=== PATIENT | male | born 1960 | race Caucasian/White ===

== ENCOUNTER 2018-11-05 06:33 | Day surgery (SDC) | payer OTHER ==
--- NOTE | 2018-10-25 18:12 | HP ---
HISTORY AND PHYSICAL: DATE OF SURGERY: 11/05/18 DATE OF OFFICE VISIT: 10/25/18 SURGEON: Macrina Pappas MD * (DICTATED BY JACOB URIAS) PROCEDURE: Right knee arthroscopy with partial meniscectomy, possible chondroplasty, possible synovectomy, and possible plica excision. CHIEF COMPLAINT: Right knee pain. HISTORY OF PRESENT ILLNESS: Mr. Houston is a 58-year-old gentleman with continued complaints of right knee pain. He failed conservative treatment and elected to proceed with a right knee arthroscopy. PAST MEDICAL HISTORY: Hypertension, high cholesterol, prior [place], depression, anxiety, sleep apnea, diabetes-diet controlled, asthma, BPH, hypothyroidism, and GERD. PAST SURGICAL HISTORY: Esophageal dilation, sinus surgery, and tonsillectomy. CURRENT MEDICATIONS: 1. Omeprazole 20 mg twice a day. 2. Nasacort Allergy nasal spray. 3. Citalopram 20 mg a day. 4. Nitroglycerin sublingual as needed. 5. Fexofenadine 180 mg daily. 6. Levothyroxine 125 mcg daily. 7. Symbicort inhaler twice daily as needed. 8. Lisinopril 10 mg a day. 9. Aspirin 325 mg once a day. 10. Albuterol inhaler as needed. 11. Multivitamin. 12. Amlodipine 5 mg a day. 13. Vitamin B12. 14. Zetia 10 mg daily. 15. Ibuprofen as needed. ALLERGIES: NIASPAN and LIPITOR. FAMILY HISTORY: Coronary artery disease, diabetes, stroke, and RA. SOCIAL HISTORY: He is a 58-year-old gentleman, lives alone. He does not smoke or use drugs or alcohol. REVIEW OF SYSTEMS: A complete 14-point review of systems was reviewed with the patient. It was positive for GERD, asthma, diabetes, hypothyroidism. He denies history of DVT, PE, hepatitis, HIV, or anesthesia problems. PHYSICAL EXAMINATION GENERAL: He is well developed, well nourished, in no acute distress. VITAL SIGNS: He stands 70 inches tall, weighs 213 pounds. His blood pressure is 111/76, his heart rate is 72. HEENT: Normocephalic, atraumatic. NECK: Supple. No palpable lymph nodes. PULMONARY: Lungs are clear to auscultation bilaterally. CARDIO: Regular rate and rhythm. Strong S1, S2. ABDOMEN: Soft, nontender, nondistended. NEUROLOGIC: He is alert and oriented x3. MUSCULOSKELETAL: Right lower extremity: The skin is intact. There are no open wounds or abrasions. There is a moderate effusion of the right knee joint , some tenderness along the medial joint line. Positive Apley's, positive Berenice's. Range of motion is 5 to 130 degrees of flexion. He is able to dorsiflex and plantarflex and has 2+ dorsalis pedis pulses. ASSESSMENT AND PLAN: Mr. Houston is a 58-year-old gentleman with complaints of right knee pain. An MRI confirms medial and lateral meniscus tear. He has elected to proceed with a right knee arthroscopy with partial meniscectomy, possible chondroplasty, possible synovectomy, possible plica excision. The surgery is scheduled for 11/05/[address] Pappas has discussed the risks and benefits of the surgery at today's visit and all of his questions were answered. He will follow up with Dr. Pappas 2 weeks after the surgery. He was instructed to stop his ibuprofen 1 week prior to the surgery, but he will continue his daily aspirin. JACOB URIAS [id number]/[facility] #: [id number] TRACEY
[~2018-11-05 06:33] MED LIST: Buffered Lidocaine 1% SYRIN* 1 ML/SYRINGE INTRADERM ONE; Famotidine IV* 10 MG/ML 2 ML (20 mg) IV ONE; Lactated Ringers 1000 ML Bag* 1,000 ML IV SCH
[2018-11-05] MEDS ORDERED: ceFAZolin 2 GM in NS PREMIX(*) 2 GM/100 ML BAG IVPB ONE (06:57)
[2018-11-05] MEDS ORDERED: Famotidine IV* 10 MG/ML 2 ML (20 mg) ONE (06:57)
[2018-11-05] MEDS ORDERED: fentaNYL* 50 MCG/ML 2 ML VIAL (100 MCG VIAL) ONE ×2 (07:33→08:18)
[2018-11-05] MEDS ORDERED: Dexamethasone IV* 4 MG/ML 1 ML (4 MG) ONE (07:33)
[2018-11-05] MEDS ORDERED: Ondansetron INJ* 2 MG/ML VIAL ONE (07:33)
[2018-11-05] MEDS ORDERED: Ketorolac INJ* 30 MG/ML 1 ML VIAL ONE (07:33)
[2018-11-05] MEDS ORDERED: Phenylephrine 10 MG/ML VIAL* 1 ML VIAL ONE (07:33)
[2018-11-05] MEDS ORDERED: Lidocaine 2% PF * 5 ML VIAL ONE (07:33)
[2018-11-05] MEDS ORDERED: Propofol* 10 MG/ML 20 ML BTL ONE (07:33)
[2018-11-05] MEDS ORDERED: Midazolam* 1 MG/ML 5 ML VIAL (5 MG) ONE (07:34)
[2018-11-05] MEDS ORDERED: KETAMINE HCL* 50 MG/ML 10 ML VIAL ONE (07:34)
[2018-11-05] MEDS ORDERED: methylPREDNISolone ACETATE 80* 80 MG/ML 1 ML VIAL ONE (07:46)
[2018-11-05] MEDS ORDERED: EPINEPHRINE 1 MG/ML 1 ML VIAL ONE (07:46)
[2018-11-05] MEDS ORDERED: ROPIVACAINE 5 MG/ML 30 ML BTL (0.5%) ONE (07:46)
[2018-11-05] MEDS ORDERED: oxyCODONE/Acetamin 5/325 MG* TAB PO PRN (07:49)
[2018-11-05] MEDS ORDERED: Ondansetron INJ* 2 MG/ML VIAL IV PRN (07:49)
[2018-11-05] MEDS ORDERED: Naloxone* 0.4 MG/ML 1 ML VIAL IV PRN (07:49)
[2018-11-05] MEDS ORDERED: fentaNYL* 50 MCG/ML 2 ML VIAL (100 MCG VIAL) IV PRN (07:49)
[2018-11-05] MEDS ORDERED: EPHEDrine (Pressors)* 50 MG/ML VIAL ONE (08:26)
[2018-11-05 10:49] VITALS: BP 112/68
--- NOTE | 2018-11-05 17:29 | OP ---
DATE OF OPERATION: 11/05/18 - [facility] DATE OF : 58 ATTENDING SURGEON: Macrina Pappas MD FINANCE SPECIALIST: JACOB Palafox. Ms. Easton did help throughout the procedure with preparation of the leg wound retractions, manipulation of the knee, and wound closure. ANESTHESIOLOGIST: Dr. Darden. ANESTHESIA: General. PRE-OP DIAGNOSIS: Right knee medial and lateral meniscal tears. POST-OP DIAGNOSIS: Right knee medial meniscal tears, mild arthritic changes. OPERATIVE PROCEDURE: Right knee arthroscopy with partial lateral meniscectomy. SPECIMEN: None. COMPLICATIONS: None. ESTIMATED BLOOD LOSS: Less than 25 cc. BRIEF HISTORY/INDICATIONS: Mr. Houston is a 58-year-old gentleman who developed acute onset of mechanical symptoms, medial and lateral knee pain that did not respond to conservative treatment. MRI confirmed medial and lateral meniscal tears. Due to continued pain, the patient elected to undergo right knee arthroscopy with partial meniscectomy. Informed consent was obtained from the patient. He understood the risks of surgery included, but were not limited to bleeding, infection, damage to nearby structures, continued pain, need for further surgery, re-tear of the meniscus, progression of arthritis, stroke, heart attack, blood clot and . He wished to proceed. INTRAOPERATIVE FINDINGS: Intraoperatively, the patient was noted to have a linear type tear involving the posterior 30% of the medial meniscus, he had a radial type tear on the anterior portion of the lateral meniscus. Both tears involved with the white-red zone. He was noted to have grade 2 and 3 Outerbridge cartilage changes in the patellofemoral and medial compartment which did not involve a large surface area of the weightbearing portion. DESCRIPTION OF PROCEDURE: Mr. Houston was identified in the preanesthesia unit. His right lower extremity was marked as the correct operative side. Informed consent was signed and placed in the chart. The patient was taken to the operating room and placed under anesthesia without difficulty. Right lower extremity was prepped and draped in the usual sterile fashion. Preop time-out was made to correctly identify the patient's side and site. Appropriate perioperative antibiotics were given within 1 hour of incision. A 0.5 cm anterolateral portal incision was made with a 10 blade and carried down to the capsule. Trocar was introduced. As soon as the light sources and water sources were turned on, there was immediate visualization of the suprapatellar pouch. A tour of the knee joint was performed. Suprapatellar pouch had no obvious abnormalities. Patellofemoral compartment had some minimal grade 2 and 3 Outerbridge cartilage changes. Medial compartment showed no significant plica or loose body. Medial compartment of the knee showed grade 2 and 3 Outerbridge cartilage changes along the medial femoral condyle. Medial meniscus tear was visible. This is a linear tear involving the posterior portion of the medial meniscus. There was some mild anterior displacement. ACL and PCL appeared to be intact. The knee was placed in a [id number] position. There was an anterior radial tear on the lateral meniscus. Minimal degenerative changes. Lateral gutters showed no loose body or plica. Under direct visualization, a medial portal incision was made with a 10-blade. Probe was introduced and second tour of the knee joint was performed. No additional findings were noted. Straight biter and shaver were used to perform partial medial meniscectomies. The linear tear in the medial meniscus was carefully excised until a smooth border was obtained in the red-white zone. Further probing of the medial meniscus showed no additional tears. The knee was placed in a [id number] position. Straight biter and shaver were used to perform partial lateral meniscectomy. The radial tear was carefully excised. Radiofrequency ablation wand was used to further smooth the edges of the lateral meniscus. Further probing of the lateral meniscus showed no additional tears. The knee was copiously irrigated with sterile saline. All instruments were removed. Incisions were closed using 3-0 nylon suture. Sterile Xeroform, 4x4s , and Webril were used to cover the incision. Intraarticular injections was placed with 80 mg of Depo-Medrol and 6 cc of 0.25% Marcaine. KORINA wrap and cold packs were placed over the dressings. The patient's anesthesia was reversed without difficulty. He was taken to the PACU in stable condition. Intended weightbearing will be weightbearing as tolerated. Intended DVT prophylaxis will be aspirin. [id number]/[facility] #: [id number] [facility]
== END 2018-11-05 10:50 | disposition home or self-care (01) ==
LOC: OR 06:33
PROVIDERS: ATTEND Orthopaedic Surgery Adult Reconstructive Orthopaedic Surgery
DX: M23.200 Derangement of unspecified lateral meniscus due to old tear or injury, right knee (principal); M23.203 Derangement of unspecified medial meniscus due to old tear or injury, right knee; I10 Essential (primary) hypertension; E78.00 Pure hypercholesterolemia, unspecified; I25.2 Old myocardial infarction; F41.8 Other specified anxiety disorders; G47.33 Obstructive sleep apnea (adult) (pediatric); E11.9 Type 2 diabetes mellitus without complications; J45.909 Unspecified asthma, uncomplicated; E03.9 Hypothyroidism, unspecified; K21.9 Gastro-esophageal reflux disease without esophagitis
CPT/HCPCS: J0690; J1040; J1100; J1885; J2250; J2405; J2704; J2795; J3010

== ENCOUNTER 2019-04-22 16:41 | Emergency (ER) | payer OTHER ==
[2019-04-22] MEDS ORDERED: Ketorolac INJ* 30 MG/ML 1 ML VIAL IM ONE (18:05)
[2019-04-22] MEDS ORDERED: DOXYcycline CAP(*) 100 MG PO ONE (18:05)
[2019-04-22] MEDS ORDERED: Dexamethasone TAB* 4 MG PO ONE (18:05)
--- NOTE | 2019-04-22 18:09 | ED ---
Skin Complaint - HPI Summary HPI Summary: 58-year-old male presents with rash since last night. She has had these lesions on his bilateral arms for the past month. He has been placing hydrocortisone as prescribed by his primary. He states that the lesions has been improving. He states he noticed a little bit of a rash on his right arm in the antecubital area that has spread down the arm. He states it spread to the left arm today. He states that area is not itchy. He states he has a burning type pain. Denies any fevers. no new soaps or products. he has never had this pain rash before. - History of Current Complaint Chief Complaint: EDRashSkinAbscess Time Seen by Provider: 04/22/19 17:44 Stated Complaint: ARM PAIN,REDNESS AND NUMBESS PER PT Pain Intensity: 8 - Additional Pertinent History Primary Care Physician: DAVID - Allergy/Home Medications Allergies/Adverse Reactions: Allergies Allergy/AdvReac Type Severity Reaction Status Date / Time atorvastatin Allergy Severe Muscle Ache Verified 04/22/19 16:51 niacin Allergy Severe Rash And Verified 04/22/19 16:51 Itching PMH/Surg Hx/FS Hx/Imm Hx Endocrine/Hematology History: Reports: Hx Thyroid Disease - hypo Denies: Hx Anticoagulant Therapy, Hx Diabetes Cardiovascular History: Reports: Hx Angina, Hx Coronary Artery Disease, Hx Hypercholesterolemia, Hx Hypertension, Hx Myocardial Infarction Denies: Hx Pacemaker/ICD Respiratory History: Reports: Hx Asthma, Hx Chronic Obstructive Pulmonary Disease (COPD), Hx Pneumonia, Hx Seasonal Allergies, Hx Sleep Apnea - is getting a new sleep study done, Other Respiratory Problems/Disorders - bronchitis GI History: Reports: Hx Gastroesophageal Reflux Disease, Hx Hiatal Hernia - small, Other GI Disorders - had surgery on esophagus History: Reports: Hx Benign Prostatic Hyperplasia, Other Problems/ Disorders - BPH Denies: Hx Renal Disease Musculoskeletal History: Reports: Hx Arthritis, Other Musculoskeletal History - cervical spondylosis with myelopathy Sensory History: Reports: Hx Contacts or Glasses - glasses Denies: Hx Hearing Aid Opthamlomology History: Reports: Hx Contacts or Glasses - glasses Neurological History: Reports: Hx Migraine - hx of - none recently Denies: Hx Dementia, Hx Seizures Psychiatric History: Reports: Hx Anxiety Denies: Hx Panic Disorder, Hx Substance Abuse - Cancer History Hx Chemotherapy: No - Surgical History Surgery Procedure, Year, and Place: esophagus surgery-- unknown. sinus sx -- unknown 2012. CARDIAC CATHERIZATION after [place], 2008. TONSILS/ADENOIDS. turbinectomy- bilat 2015 Hx Anesthesia Reactions: No Infectious Disease History: No Infectious Disease History: Denies: Hx Hepatitis, Hx Human Immunodeficiency Virus (HIV), Traveled Outside the [place] in Last 30 Days - Family History Known Family History: Positive: Non-Contributory - Social History Alcohol Use: None Substance Use Type: Reports: None Smoking Status (MU): Former Smoker Review of Systems Negative: Fever Negative: Chest Pain Negative: Shortness Of Breath Positive: Rash All Other Systems Reviewed And Are Negative: Yes Physical Exam Triage Information Reviewed: Yes Vital Signs On Initial Exam: Initial Vitals Temp Pulse Resp BP Pulse Ox 98.7 F 72 16 149/76 98 04/22/19 16:49 04/22/19 16:49 04/22/19 16:49 04/22/19 16:49 04/22/19 16:49 Vital Signs Reviewed: Yes Appearance: Positive: Well-Appearing Skin: Positive: Warm, Dry, Other - lesions noted to bilateral arms, has erythema on bilateral elbow that is warm to touch, Head/Face: Positive: Normal Head/Face Inspection Eyes: Positive: Normal, Conjunctiva Clear ENT: Positive: Pharynx normal Respiratory/Lung Sounds: Positive: Clear to Auscultation, Breath Sounds Present Cardiovascular: Positive: Normal, RRR Musculoskeletal: Positive: Normal Neurological: Positive: Normal Psychiatric: Positive: Normal Procedures - Sedation Patient Received Moderate/Deep Sedation with Procedure: No Diagnostics - Vital Signs Vital Signs Temp Pulse Resp BP Pulse Ox 04/22/19 16:49 98.7 F 72 16 149/76 98 - Laboratory Lab Statement: Any lab studies that have been ordered have been reviewed, and results considered in the medical decision making process. Course/Dx - Course Course Of Treatment: 58-year-old male presents with rash since last night. She has had these lesions on his bilateral arms for the past month. He has been placing hydrocortisone as prescribed by his primary. He states that the lesions has been improving. He states he noticed a little bit of a rash on his right arm in the antecubital area that has spread down the arm. He states it spread to the left arm today. He states that area is not itchy. He states he has a burning type pain. Denies any fevers. no new soaps or products. he has never had this pain rash before. On exam erythematous rash to bilateral antecubital area. Has lesions near the area. this appears more like contact dermatitis but with scabbed over lesions near the rash though we'll treat with doxycycline for potential cellulitis. will also place on a steroid. Told to follow up primary. Patient understands and agrees plan. - Differential Diagnoses - Skin Complaint Differential Diagnoses: Cellulitis, Contact Dermatitis, Viral Exanthem - Diagnoses Provider Diagnoses: Rash Discharge ED - Sign-Out/Discharge Documenting (check all that apply): Patient Departure - Discharge Plan Condition: Good Disposition: HOME Prescriptions: DOXYcycline CAP(*) [DOXYcycline 100MG CAP(*)] 100 mg PO BID #13 cap methylPREDNISolone [Medrol Dosepak 4 MG*] 4 mg PO .SEE JOYCE INSTRUCTION #1 packet Patient Education Materials: Acute Rash (ED) Referrals: Vanessa Almonte MD [Primary Care Provider] - Additional Instructions: Take doxycycline twice a day for 7 days follow direction for steroid package Take Tylenol or ibuprofen every 6 hours for pain Follow up with primary within 5 days Return to ED if develop any new or worsening symptoms - Billing Disposition and Condition Condition: GOOD Disposition: Home - Attestation Statements Provider Attestation: I was available for consultation for this patient. I did not evaluate the patient or participate in any medical decision making or disposition decisions unless I am specifically named in the chart as having consulted on the patient. If I have consulted on the patient, please see my own ED note on the patient encounter. Isiah Egan MD
[2019-04-22 19:49] VITALS: BP 121/73
== END 2019-04-22 19:00 | disposition home or self-care (01) ==
LOC: ED 16:41
DX: R21 Rash and other nonspecific skin eruption (principal); E03.9 Hypothyroidism, unspecified; I25.10 Atherosclerotic heart disease of native coronary artery without angina pectoris; E78.00 Pure hypercholesterolemia, unspecified; I10 Essential (primary) hypertension; I25.2 Old myocardial infarction; J44.9 Chronic obstructive pulmonary disease, unspecified; K21.9 Gastro-esophageal reflux disease without esophagitis; N40.0 Benign prostatic hyperplasia without lower urinary tract symptoms; F41.9 Anxiety disorder, unspecified; Z87.891 Personal history of nicotine dependence; Z88.8 Allergy status to other drugs, medicaments and biological substances
CPT/HCPCS: 96372; 99282; A9270-GY; J1885; J8540

== ENCOUNTER 2019-07-09 14:35 | Inpatient (IN) | payer OTHER ==
[2019-07-09] MEDS ORDERED: Nitroglycerin TAB 0.4 MG* 0.4 MG TAB SL ONE (14:48)
[2019-07-09] MEDS ORDERED: NS 0.9% 1000 ML** 1,000 ML IV ONE (14:49)
[2019-07-09] MEDS ORDERED: Nitroglycerin TAB 0.4 MG* 0.4 MG TAB ONE (14:50)
[2019-07-09] MEDS ORDERED: Heparin for STEMI(*) 5,000 UNITS/ML 1 ML VIAL IV ONE ×2 (14:57→15:08)
[2019-07-09] MEDS ORDERED: Ticagrelor* 90 MG TAB PO ONE (14:58)
[2019-07-09] MEDS ORDERED: Morphine 4 MG/ML VIAL (1 ml) 4 MG/ML VIAL IV ONE (14:59)
[2019-07-09] MEDS ORDERED: Ondansetron INJ* 2 MG/ML VIAL ONE (15:01)
[2019-07-09] MEDS ORDERED: Morphine 4 MG/ML VIAL (1 ml) 4 MG/ML VIAL ONE (15:01)
[2019-07-09] MEDS ORDERED: Lidocaine 1% INJ* 10 MG/ML 30 ML SDV ONE (15:04)
[2019-07-09] MEDS ORDERED: nitroGLYCERIN DRIP* 25,000 MCG/250 ML BTL ONE (15:04)
[2019-07-09] MEDS ORDERED: Heparin 2 UNITS/ML IVPREMIX* 3,000 ML IV ONE (15:04)
[2019-07-09] MEDS ORDERED: Heparin(*) 1000 UNIT/ML 10 ML VIAL CATH LAB IV ONE (15:06)
[2019-07-09] MEDS ORDERED: VERAPAMIL 2.5 MG/ML 2 ML VIAL ** 5 mg/2 ml ONE (15:06)
[2019-07-09] MEDS ORDERED: Iohexol 350 (CONTRAST) 200 ML MDV IV ONE ×3 (15:07→16:37)
[2019-07-09 15:15] LABS: ABS Lymphocytes 0.9 10^3/ul (1.0-4.8); ABS Monocytes 0.4 10^3/ul (0-0.8); ABS Neutrophils 8.2 10^3/ul (1.5-7.7); Eosinophil % 0.1 %; Hematocrit 42 % (42-52); Hemoglobin 14.6 g/dL (14.0-18.0); Lymphocyte % 9.2 %; Mean Corpuscular HGB Conc 34 g/dL (31-36); Mean Corpuscular Hemoglobin 31 pg (27-31); Mean Corpuscular Volume 89 fL (80-94); Mean Platelet Volume 8.4 fL (7.4-10.4); Platelet Count 241 10^3/uL (150-450); Red Blood Count 4.77 10^6 /uL (4.18-5.48); Red Cell Distribution Width 14 % (10-15); White Blood Count 9.5 10^3/uL (3.5-10.8)
[2019-07-09] MEDS ORDERED: Bivalirudin(*) 250 MG VIAL ONE ×2 (15:15→16:30)
[2019-07-09] MEDS ORDERED: Midazolam* 1 MG/ML 5 ML VIAL (5 MG) ONE (15:15)
[2019-07-09] MEDS ORDERED: fentaNYL* 50 MCG/ML 2 ML VIAL (100 MCG VIAL) ONE (15:15)
[2019-07-09 15:27] LABS: Albumin 4.9 g/dL (3.2-5.2); Albumin/Globulin Ratio 1.8 (1-3); Calcium 9.8 mg/dL (8.6-10.3); EGFR Non-African American 80.2 (>60); Globulin 2.8 g/dL (2-4); Potassium 4.1 mmol/L (3.5-5.0); Total Bilirubin 0.5 mg/dL (0.2-1.0); Total Protein 7.7 g/dL (6.4-8.9)
[2019-07-09 15:31] LABS: Troponin I 0.02 ng/mL (<0.03)
[2019-07-09 15:32] LABS: Myoglobin 61.4 ng/mL (17.4-105.7)
[2019-07-09 15:33] LABS: CKMB ng/mL 2.7 ng/mL (0.6-6.3)
[2019-07-09 15:41] LABS: INR 1.1 (0.82-1.09)
[2019-07-09] MEDS ORDERED: Adenosine* 3 MG/ML VIAL ONE (16:08)
[2019-07-09] MEDS ORDERED: Docusate CAP* 100 MG PO PRN (16:58)
[2019-07-09] MEDS ORDERED: Zolpidem TAB* 5 MG PO PRN (16:58)
[2019-07-09] MEDS ORDERED: Nitroglycerin TAB 0.4 MG* 0.4 MG TAB SL PRN (16:58)
[2019-07-09] MEDS ORDERED: NS 0.9% 1000 ML** 1,000 ML IV SCH (17:00)
[2019-07-09] MEDS ORDERED: Metoprolol Tartrate TAB* 25 MG PO SCH (17:00)
[2019-07-09] MEDS ORDERED: Metoprolol Tartrate TAB* 25 MG ONE (17:35)
--- NOTE | 2019-07-09 18:05 | ED ---
HPI Chest Pain - HPI Summary HPI Summary: This patient is a 58 year old M presenting to ED with a chief complaint of chest pain since half an hour ago. Patient also had shortness of breath, nausea , and decreased appetite. He was sitting down when the symptoms began. Patient reports having a similar episode 2 days ago, but the symptoms resolved. Patient denies diaphoresis. Patient has a history of previous NE. The patient rates the pain 7/10 in severity. Symptoms aggravated by nothing. Symptoms alleviated by nothing. - History of Current Complaint Chief Complaint: EDChestPainROMI Time Seen by Provider: 07/09/19 14:48 Hx Obtained From: Patient Onset/Duration: Started Minutes Ago - 30 min, Still Present Timing: Constant, Lasting Minutes - Since 30 minutes ago Initial Severity: Moderate Current Severity: Moderate Pain Intensity: 7 Pain Scale Used: 0-10 Numeric Aggravating Factor(s): Nothing Alleviating Factor(s): Nothing Associated Signs and Symptoms: Positive: Chest Pain, Shortness of Breath, Nausea. Negative: Diaphoresis - Additional Pertinent History Primary Care Physician: DAVID - Allergy/Home Medications Allergies/Adverse Reactions: Allergies Allergy/AdvReac Type Severity Reaction Status Date / Time atorvastatin Allergy Severe Muscle Ache Verified 07/09/19 14:42 niacin Allergy Severe Rash And Verified 07/09/19 14:42 Itching Qajfqkz-Akp-Fcc Reductase Allergy Unknown Verified 07/09/19 17:22 Inhibitor Reaction Details Home Medications: Home Medications Ezetimibe TAB* [Zetia TAB*] 10 mg PO QAM 04/10/15 [History Confirmed 07/09/19] Levothyroxine TAB* [Synthroid 125 MCG TAB*] 125 mcg PO QAM 04/10/15 [History Confirmed 07/09/19] Omeprazole CAP (NF) [Prilosec CAP* 20 MG] 20 mg PO BID 04/10/15 [History Confirmed 07/09/19] Citalopram TAB* [CeleXA TAB*] 20 mg PO QAM 10/29/18 [History Confirmed 07/09/19] Fexofenadine (NF) [Farzana 180 (NF)] 180 mg PO DAILY PRN 10/29/18 [History Confirmed 07/09/19] Nitroglycerin TAB 0.4 MG* 0.4 mg SL Q5M PRN 10/29/18 [History Confirmed 07/09/19 ] amLODIPine TAB* [Norvasc 5 mg TAB*] 5 mg PO QAM 10/29/18 [History Confirmed ] Albuterol HFA INHALER* [Ventolin HFA Inhaler*] 1 puff INH Q6H PRN 07/09/19 [ History Confirmed 07/09/19] Aspirin TAB* [Aspirin 325 MG TAB*] 325 mg PO DAILY 07/09/19 [History Confirmed 07/09/19] Lisinopril TAB* [Prinivil TAB*] 10 mg PO DAILY 07/09/19 [History Confirmed 07/09] metFORMIN* [Glucophage 500 MG TAB *] 500 mg PO DAILY 07/09/19 [History Confirmed 07/09/19] PMH/Surg Hx/FS Hx/Imm Hx Endocrine/Hematology History: Reports: Hx Thyroid Disease - hypo Denies: Hx Anticoagulant Therapy, Hx Diabetes Cardiovascular History: Reports: Hx Angina, Hx Coronary Artery Disease, Hx Hypercholesterolemia, Hx Hypertension, Hx Myocardial Infarction Denies: Hx Pacemaker/ICD Respiratory History: Reports: Hx Asthma, Hx Chronic Obstructive Pulmonary Disease (COPD), Hx Pneumonia, Hx Seasonal Allergies, Hx Sleep Apnea - is getting a new sleep study done, Other Respiratory Problems/Disorders - bronchitis GI History: Reports: Hx Gastroesophageal Reflux Disease, Hx Hiatal Hernia - small, Other GI Disorders - had surgery on esophagus History: Reports: Hx Benign Prostatic Hyperplasia, Other Problems/ Disorders - BPH Denies: Hx Renal Disease Musculoskeletal History: Reports: Hx Arthritis, Other Musculoskeletal History - cervical spondylosis with myelopathy Sensory History: Reports: Hx Contacts or Glasses - glasses Denies: Hx Hearing Aid Opthamlomology History: Reports: Hx Contacts or Glasses - glasses Neurological History: Reports: Hx Migraine - hx of - none recently Denies: Hx Dementia, Hx Seizures Psychiatric History: Reports: Hx Anxiety Denies: Hx Panic Disorder, Hx Substance Abuse - Cancer History Hx Chemotherapy: No - Surgical History Surgery Procedure, Year, and Place: esophagus surgery-- unknown. sinus sx -- unknown 2012. CARDIAC CATHERIZATION after NE, 2008. TONSILS/ADENOIDS. turbinectomy- bilat 2014 Hx Anesthesia Reactions: No Infectious Disease History: No Infectious Disease History: Denies: Hx Hepatitis, Hx Human Immunodeficiency Virus (HIV), Traveled Outside the [place] in Last 30 Days - Family History Known Family History: Positive: Cardiac Disease - CAD, Diabetes, Other - CVA - Social History Alcohol Use: None Substance Use Type: Reports: None Smoking Status (MU): Former Smoker Review of Systems Negative: Skin Diaphoresis Positive: Chest Pain Positive: Shortness Of Breath Positive: Nausea All Other Systems Reviewed And Are Negative: Yes Physical Exam - Summary Physical Exam Summary: Constitutional: Well-developed, Well-nourished, Alert. Moderate distress, clenching his chest. Skin: Warm, Dry HENT: Normocephalic; Atraumatic Eyes: Conjunctiva normal Neck: Musculoskeletal ROM normal neck. (-) JVD, (-) Stridor, (-) Tracheal deviation Cardio: Rhythm regular, rate normal, Heart sounds normal; Intact distal pulses; Radial pulses are 2+ and symmetric. (-) Murmur Pulmonary/Chest wall: Effort normal. (-) Respiratory distress, (-) Wheezes, (-) Rales Abd: Soft, (-) tenderness, (-) Distension, (-) Guarding, (-) Rebound Musculoskeletal: (-) Edema Lymph: (-) Cervical adenopathy Neuro: Alert, Oriented x3 Psych: Mood and affect Normal Vital Signs On Initial Exam: Initial Vitals Temp Pulse Resp BP Pulse Ox 98.7 F 105 20 185/102 95 07/09/19 14:35 07/09/19 14:35 07/09/19 14:35 07/09/19 14:35 07/09/19 14:35 Procedures - Sedation Patient Received Moderate/Deep Sedation with Procedure: No Diagnostics - Vital Signs Vital Signs Temp Pulse Resp BP Pulse Ox 07/09/19 15:16 70 161/105 07/09/19 15:10 98 F 70 18 161/105 96 07/09/19 14:50 127 18 96 07/09/19 14:35 98.7 F 105 20 185/102 95 - Laboratory Lab Results: Lab Results 07/09/19 07/09/19 07/09/19 Range/Units 14:55 14:55 15:00 WBC 9.5 (3.5-10.8) 10^3/uL RBC 4.77 (4.18-5.48) 10^6 /uL Hgb 14.6 (14.0-18.0) g/dL Hct 42 (42-52) % MCV 89 (80-94) fL MCH 31 (27-31) pg MCHC 34 (31-36) g/dL RDW 14 (10-15) % Plt Count 241 (150-450) 10^3/uL MPV 8.4 (7.4-10.4) fL Neut % (Auto) 85.7 % Lymph % (Auto) 9.2 % [place] % (Auto) 4.6 % Eos % (Auto) 0.1 % Baso % (Auto) 0.4 % Absolute Neuts (auto) 8.2 H (1.5-7.7) 10^3/ul Absolute Lymphs (auto) 0.9 L (1.0-4.8) 10^3/ul Absolute Monos (auto) 0.4 (0-0.8) 10^3/ul Absolute Eos (auto) 0.0 (0-0.6) 10^3/ul Absolute Basos (auto) 0.0 (0-0.2) 10^3/ul Absolute Nucleated RBC 0.0 10^3/ul Nucleated RBC % 0.0 INR (Anticoag Therapy) 1.10 H (0.82-1.09) APTT 27.0 (26.0-38.0) seconds Sodium 139 (135-145) mmol/L Potassium 4.1 (3.5-5.0) mmol/L Chloride 103 (101-111) mmol/L Carbon Dioxide 27 (22-32) mmol/L Anion Gap 9 (2-11) mmol/L BUN 24 (6-24) mg/dL Creatinine 0.96 (0.67-1.17) mg/dL Est GFR ( Amer) 97.0 (>60) Est GFR (Non-Af Amer) 80.2 (>60) BUN/Creatinine Ratio 25.0 H (8-20) Glucose 158 H (70-100) mg/dL Calcium 9.8 (8.6-10.3) mg/dL Total Bilirubin 0.50 (0.2-1.0) mg/dL AST 19 (13-39) U/L ALT 21 (7-52) U/L Alkaline Phosphatase 117 H (34-104) U/L Total Creatine Kinase 109 (10-223) U/L CK-MB (CK-2) 2.7 (0.6-6.3) ng/mL Myoglobin 61.4 (17.4-105.7) ng/mL Troponin I 0.02 (<0.03) ng/mL B-Natriuretic Peptide (<=100) pg/mL Total Protein 7.7 (6.4-8.9) g/dL Albumin 4.9 (3.2-5.2) g/dL Globulin 2.8 (2-4) g/dL Albumin/Globulin Ratio 1.8 (1-3) LDL Cholesterol Direct 194 mg/dL Blood Type Antibody Screen 07/09/19 07/09/19 Range/Units 15:00 15:00 WBC (3.5-10.8) 10^3/uL RBC (4.18-5.48) 10^6 /uL Hgb (14.0-18.0) g/dL Hct (42-52) % MCV (80-94) fL MCH (27-31) pg MCHC (31-36) g/dL RDW (10-15) % Plt Count (150-450) 10^3/uL MPV (7.4-10.4) fL Neut % (Auto) % Lymph % (Auto) % [place] % (Auto) % Eos % (Auto) % Baso % (Auto) % Absolute Neuts (auto) (1.5-7.7) 10^3/ul Absolute Lymphs (auto) (1.0-4.8) 10^3/ul Absolute Monos (auto) (0-0.8) 10^3/ul Absolute Eos (auto) (0-0.6) 10^3/ul Absolute Basos (auto) (0-0.2) 10^3/ul Absolute Nucleated RBC 10^3/ul Nucleated RBC % INR (Anticoag Therapy) (0.82-1.09) APTT (26.0-38.0) seconds Sodium (135-145) mmol/L Potassium (3.5-5.0) mmol/L Chloride (101-111) mmol/L Carbon Dioxide (22-32) mmol/L Anion Gap (2-11) mmol/L BUN (6-24) mg/dL Creatinine (0.67-1.17) mg/dL Est GFR ( Amer) (>60) Est GFR (Non-Af Amer) (>60) BUN/Creatinine Ratio (8-20) Glucose (70-100) mg/dL Calcium (8.6-10.3) mg/dL Total Bilirubin (0.2-1.0) mg/dL AST (13-39) U/L ALT (7-52) U/L Alkaline Phosphatase (34-104) U/L Total Creatine Kinase (10-223) U/L CK-MB (CK-2) (0.6-6.3) ng/mL Myoglobin (17.4-105.7) ng/mL Troponin I (<0.03) ng/mL B-Natriuretic Peptide 22 (<=100) pg/mL Total Protein (6.4-8.9) g/dL Albumin (3.2-5.2) g/dL Globulin (2-4) g/dL Albumin/Globulin Ratio (1-3) LDL Cholesterol Direct mg/dL Blood Type O Positive Antibody Screen Negative Result Diagrams: 07/09/19 14:55 07/09/19 15:00 Lab Statement: Any lab studies that have been ordered have been reviewed, and results considered in the medical decision making process. - EKG 1439 Cardiac Rate: Tachycardia - 100 BPM EKG Rhythm: Sinus Tachycardia Summary of EKG Findings: Sinus tachycardia at [address] elevation in V3 through V5 is new compared to prior EKG on 09/17/15. ST elevation in III, aVF. Dr. Santos has reviewed and interpreted this EKG. Chest Pain Course/Dx - Course Course Of Treatment: Patient is here with chest pain. EKG was brought to myself by the triage aid which showed ST elevation in V3, V4, V5. An old EKG was obtained and this appeared new. I then evaluated the patient he had chest pain, shortness of breath for the past 30 minutes. Cardiology was immediately called and recommended stat catheterization. A code STEMI was called although patient did not meet STEMI criteria to activate the Director Mobile. Patient was given heparin, Brilinta, nitroglycerin, morphine, IV fluids. - Diagnoses Provider Diagnoses: STEMI (ST elevation myocardial infarction) During the Visit The Following Alert/Code Occurred: STEMI - Provider Notifications Discussed Care Of Patient With: Simon Lopez Time Discussed With Above Provider: 14:59 Instructed by Provider To: Will See In ED - Discussed patient case with Dr. Lopez, intervetional traveler changer, who will come see the patient in the ED. Dr. Lopez admitted the patient. Discharge ED - Sign-Out/Discharge Documenting (check all that apply): Patient Departure - Admit - Discharge Plan Condition: Fair Disposition: ADMITTED TO [facility] - Billing Disposition and Condition Condition: FAIR Disposition: Admitted to [facility] - Attestation Statements Document Initiated by Scribe: Yes Documenting Scribe: Aleksandr Arango Provider For Whom Nataliia is Documenting (Include Credential): Martir Santos MD Scribe Attestation: I, Aleksandr Arango, scribed for Martir Santos MD on 07/09/19 at 1943. Scribe Documentation Reviewed: Yes Provider Attestation: The documentation as recorded by the scribcarl, Aleksandr Arango accurately reflects the service I personally performed and the decisions made by me, Martir Santos MD Status of Scribe Document: Viewed
[2019-07-09] MEDS ORDERED: amLODIPine TAB* 5 MG PO ONE (19:15)
[2019-07-09] MEDS: Mometasone/Formoter 200/5 MDI INH SCH (19:53)
[2019-07-09] MEDS: Ticagrelor* 90 MG TAB PO SCH (21:17)
[2019-07-09] MEDS: Acetaminophen TAB* 325 MG PO PRN (21:17)
--- NOTE | 2019-07-09 21:27 | PN ---
Sepsis Event Evaluation Date of Evaluation: 07/10/19 Time of Evaluation: 02:40 Current Stage of Sepsis: Sepsis Vital Signs - Last 12 Hours: Vital Signs - 12 hr Temp Pulse Resp BP Pulse Ox 07/09/19 21:00 67 21 138/61 96 07/09/19 20:45 66 22 135/77 96 07/09/19 20:30 67 20 156/88 97 07/09/19 20:15 71 12 145/86 96 07/09/19 20:00 75 21 131/104 96 07/09/19 19:45 72 23 144/83 97 07/09/19 19:43 101.3 F 07/09/19 19:30 71 15 141/88 96 07/09/19 19:16 76 23 151/75 96 07/09/19 19:00 73 17 153/89 96 07/09/19 18:46 80 22 152/83 96 07/09/19 18:31 71 22 125/88 97 07/09/19 18:15 69 33 149/88 96 07/09/19 18:00 86 19 163/90 96 07/09/19 17:46 83 17 153/91 98 07/09/19 17:30 77 17 171/85 97 07/09/19 17:15 72 15 151/81 99 07/09/19 17:07 76 17 156/88 97 07/09/19 17:03 98.4 F 85 18 163/85 98 07/09/19 15:16 70 161/105 07/09/19 15:10 98 F 70 18 161/105 96 07/09/19 14:50 127 18 96 07/09/19 14:35 98.7 F 105 20 185/102 95 - Cardiopulmonary Exam Capillary Refill: Immediate Respiratory: Symmetrical Chest Expansion and Respiratory Effort Cardiovascular: NL Sounds; No Murmurs; No JVD - Peripheral Pulse Exam Radial Pulses: Bilateral Normal Pedal Pulses: Bilateral Normal - Skin Exam Skin Exam: Normal Turgor - Colton Coma Scale Best Eye Response: 4 - Spontaneous Best Motor Response: 6 - Obeys Commands Best Verbal Response: 5 - Oriented Coma Scale Total: 15 Assess/Plan/Problems-Billing Assessment: Will continue abx until cx back. no clear source at this point. ct neg, flu negative, bp stable, no more fever, trop elevated due to SC and not from sepsis , will continues to follow,
[2019-07-09] MEDS: cefTRIAXone(*) 1 GM in NS 0.9% 50 ML* 50 ML IVPB SCH (21:38)
[2019-07-09] MEDS ORDERED: Pantoprazole TAB * 40 MG TAB PO ONE (21:45)
[2019-07-09] MEDS ORDERED: Al Hydrox/Mg Hydrox/Simet LIQ* 30 ML UDC PO ONE (21:45)
[2019-07-09] MEDS ORDERED: Albuterol HFA INHALER* 8 gm MDI INH PRN (21:49)
[2019-07-09] MEDS ORDERED: Dextrose 50% Syringe 50 ML* 25 GM/50 ML SYRINGE IV PUSH PRN (21:50)
[2019-07-09 21:52] LABS: ABS Basophils 0.1 10^3/ul (0-0.2); ABS Lymphocytes 1.5 10^3/ul (1.0-4.8); ABS Monocytes 0.7 10^3/ul (0-0.8); ABS Neutrophils 9.1 10^3/ul (1.5-7.7); Hematocrit 39 % (42-52); Hemoglobin 13.5 g/dL (14.0-18.0); Lymphocyte % 13.4 %; Mean Corpuscular HGB Conc 34 g/dL (31-36); Mean Corpuscular Hemoglobin 31 pg (27-31); Mean Corpuscular Volume 89 fL (80-94); Mean Platelet Volume 8.2 fL (7.4-10.4); Platelet Count 221 10^3/uL (150-450); Red Blood Count 4.41 10^6 /uL (4.18-5.48); Red Cell Distribution Width 14 % (10-15); White Blood Count 11.5 10^3/uL (3.5-10.8)
[2019-07-09] MEDS: Metoprolol Tartrate TAB* 25 MG PO SCH (22:00)
[2019-07-09 22:04] LABS: Influenza A Molecular Negative (Negative); Influenza B Molecular Negative (Negative)
[2019-07-09 22:10] LABS: ALT 20 U/L (7-52); AST 34 U/L (13-39); Albumin 4.1 g/dL (3.2-5.2); Albumin/Globulin Ratio 1.5 (1-3); Alkaline Phosphatase 111 U/L (34-104); Anion Gap 9 mmol/L (2-11); BUN/Creatinine Ratio 22.4 (8-20); Blood Urea Nitrogen 17 mg/dL (6-24); CO2 Carbon Dioxide 23 mmol/L (22-32); Calcium 8.9 mg/dL (8.6-10.3); Chloride 104 mmol/L (101-111); Creatine Kinase 399 U/L (10-223); Globulin 2.8 g/dL (2-4); Glucose 140 mg/dL (70-100); Potassium 3.8 mmol/L (3.5-5.0); Sodium 136 mmol/L (135-145); Total Protein 6.9 g/dL (6.4-8.9)
[2019-07-09 22:13] LABS: Troponin I 3.98 ng/mL (<0.03)
[2019-07-09 22:21] LABS: Urine Appearance Clear; Urine Bilirubin Negative (Negative); Urine Blood 3+ (Negative); Urine Color Straw; Urine Glucose 1+(50 mg/dL) (Negative); Urine Ketones Negative (Negative); Urine Nitrite Negative (Negative); Urine Protein Negative (Negative); Urine Specific Gravity 1.038 (1.010-1.030); Urine Urobilinogen Negative (Negative)
[2019-07-09 22:44] LABS: Urine Bacteria Absent (Absent); Urine Red Blood Cell 3+(>10/hpf) (Absent); Urine White Blood Cell 1+(6-10/hpf) (Absent)
[2019-07-09 23:24] LABS: Erythrocyte Sed Rate 3 mm/Hr (0-19)
[2019-07-10] MEDS: Acetaminophen TAB* 325 MG PO PRN ×2 (00:11→05:20)
--- NOTE | 2019-07-10 01:21 | CONS ---
CC: Dr. Lopez; Dr. Almonte * CONSULTATION REPORT: DATE OF CONSULT: 07/09/19 REQUESTING PHYSICIAN: Dr. Lopez. MY ATTENDING PHYSICIAN WHILE IN THE HOSPITAL: Dr. Shanda Guzman (report dictated by Tristan Ibrahim NP) PRIMARY CARE PROVIDER: Dr. Almonte. REASON FOR MEDICAL CONSULT: 1. Fever. 2. Sepsis. 3. Diabetes. HISTORY OF PRESENT ILLNESS: I refer you to Dr. Lopez's H and P for further details. In short, Mr. Houston is a 58-year-old male patient with significant medical history for hypertension, CAD, hyperlipidemia, history of DC, depression , anxiety, SEBAS, diabetes, asthma, BPH, hypothyroidism, and GERD, who today presented to the ER with an acute onset of chest pain about 20 to 30 minutes prior to arrival, described as a pressure ache, intense pain in the center of his chest that was getting progressively worse. 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 Unfortunately, the pain came back today, was more severe, more intense. He came to the ER. In the ER, it was noted that the patient had an ST elevation on his EKG. There was concern for acute DC, and the patient was brought to the solder making laborer and stented. The patient was brought back to the ICU and was being monitored, and then unfortunately around 2100, the patient spiked a temperature of 101.2. He had elevated respiratory rate around 22. There was concern for sepsis, a code sepsis was called and we were asked to evaluate and consult. He also has a history of diabetes, and we were asked to help manage this. He does state that days leading up to this he had been feeling kind of under the weather. He had been aching all over. He has been having a cough, URI-type symptoms. He states that he just had not been feeling well. He has been feeling weak. He denied any sick contacts. He said that he has been feeling stuffed up and congested. In addition to this, he is pointing out today that he is noticing that his belly feels more bloated, but he denies pain. He said that he did vomit once when he was in the ER. He felt nauseous in the ER with the chest pain and he became sweaty. He does state that approximately 2 months ago he was diagnosed with skin infection and was treated for that, although he says that he does not appear to have any redness or erythema like he had previously in April. He does have chronic open sores to his arms of unclear etiology and he is following with his primary for this. Because of the fever, the sepsis, the fact that he spiked a temperature and the diabetes, we were asked to evaluate and consult. PAST MEDICAL HISTORY: Significant for: 1. Hypertension. 2. CAD. 3. Hyperlipidemia. 4. DC. 5. Depression. 6. Anxiety. 7. SEBAS. 8. Diabetes. 9. Asthma. 10. BPH. 11. Hypothyroidism. 12. GERD. PAST SURGICAL HISTORY: 1. He has had right knee arthroscopy. 2. Cardiac catheterization x2 now. 3. Spinal surgery. 4. Tonsillectomy. 5. Esophageal dilatation. MEDICATIONS: His home medications according to the list provided include: 1. Aspirin 325 mg daily. 2. Ventolin 1 puff inhaled every 6 hours as needed. 3. Nitro 0.4 mg sublingual q.5 minutes p.r.n. chest pain. 4. Lisinopril 10 mg daily. 5. Farzana 180 mg p.o. daily as needed. 6. Metformin 500 mg daily. 7. Zetia 10 mg daily. 8. Amlodipine 5 mg daily. 9. Celexa 20 mg daily. 10. Omeprazole 20 mg p.o. b.i.d. 11. Synthroid 125 mcg p.o. daily. ALLERGIES TO MEDICATIONS: Include ATORVASTATIN and NIACIN. FAMILY HISTORY: He has mother who is diabetic. Father diabetic. His father had an DC and also coronary artery disease. SOCIAL HISTORY: Former smoker, does not drink alcohol. Surrogate decision maker is his daughter. REVIEW OF SYSTEMS: There is a documented fever here tonight. He did admit to having chills last few days. He does admit to rhinorrhea, does admit to feeling stuffed up, does admit to a cough. Denies shortness of breath. He did admit to chest pain per my HPI, denies any now. He did admit to nausea and vomiting once in the ER, but none now. Denies abdominal pain, currently he does admit to feeling bloated. He denies any lightheadedness. No dysuria, no frequency, no seizure, no loss of consciousness. No pruritus, no skin ulcerations. Review of 14 systems completed, all others negative. PHYSICAL EXAM: Vital Signs: Currently blood pressure 138/61, pulse 67, respirations 21, O2 sat 96%, temperature 101.2. General: At this time, Mr. Houston is a 58-year-old male patient. He is sitting in the ICU stretcher. He does not appear to be in any acute distress. He appears to be well nourished , well developed. HEENT: Head: Atraumatic, normocephalic. Eyes: EOMs intact. Sclerae anicteric, not pale. Neck was supple. Throat: Oral mucosa appears to be dry. No oropharyngeal erythema. Heart sounds S1, S2. Regular rate and rhythm. No murmurs, rubs, or gallops. Lungs: Clear to auscultation bilaterally. No wheezes, rales, or rhonchi. Abdomen was mildly distended. He did have some tenderness in the left lower quadrant. Bowel function present. Extremities: Pulses were 2+ throughout. Distal CSM checks were intact to his right wrist. No peripheral edema noted. He had 5/5 strength throughout. Neurologically: He is awake, alert, oriented x3. Speech clear. Tongue midline. Manager Surgical equals. No facial drooping. No gross focal deficit. Skin: Intact. He does have some abrasions to the biceps bilaterally but did not appear to be erythematic and no drainage was noted. DIAGNOSTIC STUDIES/LAB DATA: Most recent CBC, WBC 11.5, RBC 4.41, hemoglobin 13.5, hematocrit 39, platelet count 221, his absolute neutrophil count was 9.1. INR this morning 1.10, PTT 27.0. Sodium 139, potassium 4.1, chloride 103, bicarb 27, BUN 24, creatinine 0.96, glucose 158, calcium 9.8. Total bili 0.5, AST 19, ALT 21, alk phos 117. CPK 109, CK-MB 2.7. Myoglobin 61.4, troponin 0.02, albumin of 4.9. He did have a chest x-ray obtained today. When I reviewed, I did not appreciate any acute infiltrate. No pulmonary edema. He just had an EKG most recently done at 2117, showing normal sinus rhythm, rate of [address] elevation appeared to be resolved. He does have some T-wave flattening in lead II along with V6 and V5. Again, no elevation at this point. Old medical records reviewed. ASSESSMENT AND PLAN: Mr. Houston is a 58-year-old male patient, coming in to the cardiology services today for an acute myocardial infarction. He went to the solder making laborer, he was stented. Post procedure, he was noted in the ICU to have fever. There was concern for sepsis, code sepsis was called. In addition, he does have significant past medical history, and we were asked to evaluate the patient and help with comorbid medical management. Recommendations at this point are: 1. Myocardial infarction with a history of coronary artery disease, status post cardiac catheterization with stenting. I will defer management to Dr. Lopez and his team. 2. Sepsis, source is unclear at this point. He does give a history prior to this episode today that he has been feeling under the weather 4 to 5 days and aching all over, chills, URI symptoms. I am concerned for possible flu. I am swabbing him. We are getting lactic acid. We are also going to be giving him a dose of antibiotics empirically Rocephin. I am mc-culturing him with blood cultures, checking his urine and sputum culture if possible in addition to this. Again, blood cultures have been sent. I will check a CBC and a CMP as well. I did not give him a 30 cc/kg bolus because his blood pressure is stable. Given the recent myocardial infarction, did not want to give him the fluids unless he absolutely needed them, and at this point given the blood pressure is stable, I am holding. If his blood pressure trends down, I have a low threshold to give him 30 cc/kg of fluids but he is holding at this point. I see no signs of an organ dysfunction at this point on examination, but I am waiting for lab work to come back. If initial workup is unrevealing, I have a low threshold to obtain a CT of the abdomen. Given the bloating and the fact that he does have some left lower quadrant tenderness, I want to rule out any intraabdominal source of possible fever. For now, we will continue Rocephin and we will again panculture and see if we can find a source. 3. Hypertension. I could continue meds as prescribed. 4. Coronary artery disease. He is on aspirin, beta-mee; continue. He is not on STATINS because he is allergic. 5. Hyperlipidemia, continue Zetia. 6. Depression and anxiety, supportive care. 7. History of obstructive sleep apnea. I will discuss with the patient if he is currently using CPAP. If he is not, he will need to follow this up in the outpatient setting. 8. Asthma. Continue meds as prescribed. 9. Benign prostatic hypertrophy. Continue with his current medical regimen. 10. Hypothyroidism. Continue Synthroid. 11. Diabetes. I have put him on a lispro sliding scale. 12. Gastroesophageal reflux disease. Continue PPI therapy. 13. DVT prophylaxis: I will defer to the primary team. 14. Code status: He is a full code. 15. Fluids, electrolytes, nutrition: I would recommend a consistent carb, heart healthy diet. TIME SPENT: Time spent on the consult is 60 minutes, Greater than half the time was spent [id number] with the patient obtaining my history and physical, other half of the time spent going over the plan of care with the patient and implementing plan of care. I discussed the plan of care with my attending Dr. Guzman; she is in agreement. TRISTAN IBRAHIM, FARHAN [id number]/CPS #: [id number] TRACEY
[2019-07-10 05:08] LABS: ABS Eosinophils 0.1 10^3/ul (0-0.6); ABS Lymphocytes 2.1 10^3/ul (1.0-4.8); ABS Monocytes 0.7 10^3/ul (0-0.8); ABS Neutrophils 6.5 10^3/ul (1.5-7.7); Eosinophil % 0.6 %; Hematocrit 39 % (42-52); Hemoglobin 13.1 g/dL (14.0-18.0); Lymphocyte % 22.5 %; Mean Corpuscular HGB Conc 34 g/dL (31-36); Mean Corpuscular Hemoglobin 30 pg (27-31); Mean Corpuscular Volume 89 fL (80-94); Mean Platelet Volume 8.6 fL (7.4-10.4); Platelet Count 212 10^3/uL (150-450); Red Blood Count 4.34 10^6 /uL (4.18-5.48); Red Cell Distribution Width 14 % (10-15); White Blood Count 9.5 10^3/uL (3.5-10.8)
[2019-07-10] MEDS: Metoprolol Tartrate TAB* 25 MG PO SCH (05:20)
[2019-07-10] MEDS: Levothyroxine TAB* 125 MCG TAB PO SCH (05:20)
[2019-07-10 05:36] LABS: CKMB ng/mL 74.4 ng/mL (0.6-6.3)
[2019-07-10 05:38] LABS: Anion Gap 7 mmol/L (2-11); CO2 Carbon Dioxide 25 mmol/L (22-32); Chloride 104 mmol/L (101-111); Potassium 4.1 mmol/L (3.5-5.0); Sodium 136 mmol/L (135-145)
[2019-07-10 05:44] LABS: ALT 23 U/L (7-52); AST 64 U/L (13-39); Albumin/Globulin Ratio 1.5 (1-3); Alkaline Phosphatase 109 U/L (34-104); BUN/Creatinine Ratio 20.5 (8-20); Blood Urea Nitrogen 17 mg/dL (6-24); Cholesterol 224 mg/dL; Creatine Kinase 679 U/L (10-223); EGFR African American 114.7 (>60); EGFR Non-African American 94.8 (>60); Globulin 2.7 g/dL (2-4); Glucose 124 mg/dL (70-100); HDL Cholesterol 30.6 mg/dL; LDL Cholesterol 151 mg/dL; Total Protein 6.7 g/dL (6.4-8.9); Triglycerides 212 mg/dL
[2019-07-10 05:46] LABS: Troponin I 10.24 ng/mL (<0.03)
[2019-07-10] MEDS: Insulin LISPRO* 1 UNITS UNIT SUBCUT SCH ×3 (07:52→17:17)
[2019-07-10] MEDS ORDERED: Perflutren Lipid Microsphere* 3 ML VIAL ONE (08:07)
--- NOTE | 2019-07-10 08:52 | HP ---
CC: Dr. Vanessa Almonte; Dr. Roberta Hilton in [facility] [place] INITIAL HISTORY AND PHYSICAL: DATE OF ADMISSION: 07/09/19 FAMILY PHYSICIAN: Dr. Vanessa Almonte. CHIEF COMPLAINT: The patient presents with severe chest, bilateral arm discomfort with EKG suggestin g ST segment elevation, apical inferior wall. HISTORY OF PRESENT ILLNESS: The patient is a 58-year-old gentleman with a prior history of an inferi or wall [place] in 2008 with unsuccessful attempt of revascularization at [facility] after being transferred from [facility] after thrombolytic therapy was given. The patient states abbe t more recently he has been having some episodes of recurrent chest discomfort albeit limited in natu re and not severe. Starting approximately 30 minutes to 40 minutes prior to arrival, the patient had the onset of severe chest discomfort with radiation down both arms into the hands in addition to a l ump sensation in his throat with shortness of breath. He asked his friend to bring him to the emerge ncy room. In the emergency room, EKG documented mild ST segment elevations in V3 through V5, and in the inferior wall with mild ST depression in avL. A STEMI alert was called. I saw the patient and t he risks and benefits were explained. He was in acute distress. He wished to proceed for cardiac ca theterization. He was bolused with heparin therapy 5000 units in addition to being given 180 mg of B rilinta. He had already taken full dose aspirin, which he takes at home daily. PAST MEDICAL HISTORY: Includes the prior history of coronary artery disease. He has a history of hy pertension, COPD, type 2 diabetes, gastritis, hyperlipidemia, carotid artery disease, sleep apnea, hy pothyroidism, and benign prostatic hypertrophy. Cardiac risk factors include hypertension, diabetes, hyperlipidemia. He does not smoke as he quit many years ago, but he does have a family history of co ronary artery disease. FAMILY HISTORY: Significant for early heart disease in first-degree relatives. SOCIAL HISTORY: The patient does not smoke as mentioned earlier. REVIEW OF SYSTEMS: Pertinent to proceeding emergently to the cardiovascular laboratory included nega tive history of TIA or stroke, no history of hematochezia, hematemesis or hematuria. No contrast all ergy and no known history of kidney disease. PHYSICAL EXAMINATION GENERAL: In the emergency room revealed a gentleman in significant distress from chest and bilateral arm discomfort stating he had difficulty getting his breath. VITAL SIGNS: Blood pressure 161/105, pulse 70 and regular, respirations 18, O2 saturation 96%. NECK: Supple without increased JVP. A question of a left carotid bruit was raised. LUNGS: Clear to A and P with no active rales, rhonchi or wheezes. HEART: Reveals no visible heaves, no palpable heaves or thrills. No significant systolic or diastol ic murmur appreciated. ABDOMEN: Obese, soft, nontender. EXTREMITIES: Without edema. Peripheral pulses were intact. Femoral pulses noted without bruits. R ight radial artery pulse was strong. NEUROLOGIC: The patient is alert and oriented with normal mentation. MUSCULOSKELETAL: The patient moves all extremities appropriate. PSYCHOLOGICAL: The patient with appropriate affect. DIAGNOSTIC STUDIES/LAB DATA: Laboratory results were pending at the time of the emergency room eval uation. EKG in the emergency room reveals sinus tachycardia, heart rate of 100, mild ST segment elev ation in III and aVF, and V3 through V5, slightly in lead II with mild ST segment depression in aVL. ASSESSMENT AND PLAN: The patient presents with significant symptoms, history of known coronary arter y disease and suggestive findings for an apical inferior myocardial infarction. The patient has alre lziy received Brilinta, heparin, and already took his aspirin. The risks and benefits of cardiac cath eterization were explained to him, he understood them, and wished to proceed. Further management alberto l be made pending the results of cardiac catheterization. [id number]/[facility] #: [id number]
[2019-07-10] MEDS: Aspirin 81 mg CHEW TAB* 81 MG TAB.CHEW PO SCH (08:56)
[2019-07-10] MEDS: Ticagrelor* 90 MG TAB PO SCH ×2 (08:56→20:13)
[2019-07-10] MEDS: Citalopram TAB* 40 MG PO SCH (08:57)
[2019-07-10] MEDS: amLODIPine TAB* 5 MG PO SCH (08:57)
[2019-07-10] MEDS: Pantoprazole TAB * 40 MG TAB PO SCH (08:57)
[2019-07-10] MEDS ORDERED: Lisinopril TAB* 10 MG PO SCH (09:00)
[2019-07-10] MEDS: Mometasone/Formoter 200/5 MDI INH SCH ×2 (09:00→18:59)
--- NOTE | 2019-07-10 09:44 | PN ---
Date of Service: 07/10/19 Critical Care Services: Patient is s/p cardiac stent for STEMI yesterday. Code sepsis was called for fever and elevated WBC to 11.5. Patient did have URI symptoms almost a week ago. He currently reports mild chest pressure. He denies SOB. He has mild suprapubic abdominal pain this morning, no nausea and tolerating heart healthy diet. CT abd/pelv yesterday was unremarkable. Vital Signs: Temp Pulse Resp BP SpO2 FiO2 99.1 F 65 24 137/83 96 07/10/19 07:20 07/10/19 09:01 07/10/19 09:01 07/10/19 09:01 07/10/19 09:01 Physical Exam: Gen: No acute distress. HEENT: Normocephalic, atraumatic. Pupils equal and no scleral icterus. Moist mucous membranes. Neck supple. Lungs: Clear to auscultation. Cardiac: RRR Abdomen: Soft, nondistended, mild tenderness to palpation suprapubic region. No guarding or rebound. Extremities: Warm. No pedal edema. Palpable PT pulses. R radial access site clean and dry. Neuro: Alert and oriented x3. Moves all extremities equally. Psych: Normal affect. Fluid Balance (Past 24 Hours): I= O= Net Intake & Output 07/08/19 07/09/19 07/10/19 07/11/19 06:59 06:59 06:59 06:59 Intake Total 1460 360 Output Total 1125 Balance 335 360 Weight 210 lb 8.663 oz Intake: IV Fluids 1400 NS 900 IVPB 60 ABX 60 Oral 360 Output: Urine 1125 Labs: Laboratory Results - last 24 hr 07/09/19 07/09/19 07/09/19 14:55 14:55 15:00 WBC 9.5 RBC 4.77 Hgb 14.6 Hct 42 MCV 89 MCH 31 MCHC 34 RDW 14 Plt Count 241 MPV 8.4 Neut % (Auto) 85.7 Lymph % (Auto) 9.2 [place] % (Auto) 4.6 Eos % (Auto) 0.1 Baso % (Auto) 0.4 Absolute Neuts (auto) 8.2 H Absolute Lymphs (auto) 0.9 L Absolute Monos (auto) 0.4 Absolute Eos (auto) 0.0 Absolute Basos (auto) 0.0 Absolute Nucleated RBC 0.0 Nucleated RBC % 0.0 ESR INR (Anticoag Therapy) 1.10 H APTT 27.0 Sodium 139 Potassium 4.1 Chloride 103 Carbon Dioxide 27 Anion Gap 9 BUN 24 Creatinine 0.96 Est GFR ( Amer) 97.0 Est GFR (Non-Af Amer) 80.2 BUN/Creatinine Ratio 25.0 H Glucose 158 H Lactic Acid Calcium 9.8 Total Bilirubin 0.50 AST 19 ALT 21 Alkaline Phosphatase 117 H Total Creatine Kinase 109 CK-MB (CK-2) 2.7 Myoglobin 61.4 Troponin I 0.02 C-Reactive Protein B-Natriuretic Peptide Total Protein 7.7 Albumin 4.9 Globulin 2.8 Albumin/Globulin Ratio 1.8 Triglycerides Cholesterol LDL Cholesterol LDL Cholesterol Direct 194 HDL Cholesterol Urine Color Urine Appearance Urine pH Ur Specific [place] Urine Protein Urine Ketones Urine Blood Urine Nitrate Urine Bilirubin Urine Urobilinogen Ur Leukocyte Esterase Urine WBC (Auto) Urine RBC (Auto) Urine Bacteria Urine Glucose Influenza A (Rapid) Influenza B (Rapid) Blood Type Antibody Screen 07/09/19 07/09/19 07/09/19 15:00 15:00 21:30 WBC RBC Hgb Hct MCV MCH MCHC RDW Plt Count MPV Neut % (Auto) Lymph % (Auto) [place] % (Auto) Eos % (Auto) Baso % (Auto) Absolute Neuts (auto) Absolute Lymphs (auto) Absolute Monos (auto) Absolute Eos (auto) Absolute Basos (auto) Absolute Nucleated RBC Nucleated RBC % ESR INR (Anticoag Therapy) APTT Sodium Potassium Chloride Carbon Dioxide Anion Gap BUN Creatinine Est GFR ( Amer) Est GFR (Non-Af Amer) BUN/Creatinine Ratio Glucose Lactic Acid Calcium Total Bilirubin AST ALT Alkaline Phosphatase Total Creatine Kinase CK-MB (CK-2) Myoglobin Troponin I C-Reactive Protein B-Natriuretic Peptide 22 Total Protein Albumin Globulin Albumin/Globulin Ratio Triglycerides Cholesterol LDL Cholesterol LDL Cholesterol Direct HDL Cholesterol Urine Color Urine Appearance Urine pH Ur Specific [place] Urine Protein Urine Ketones Urine Blood Urine Nitrate Urine Bilirubin Urine Urobilinogen Ur Leukocyte Esterase Urine WBC (Auto) Urine RBC (Auto) Urine Bacteria Urine Glucose Influenza A (Rapid) Negative Influenza B (Rapid) Negative Blood Type O Positive Antibody Screen Negative 07/09/19 07/09/19 07/09/19 21:41 21:41 21:41 WBC 11.5 H RBC 4.41 Hgb 13.5 L Hct 39 L MCV 89 MCH 31 MCHC 34 RDW 14 Plt Count 221 MPV 8.2 Neut % (Auto) 79.6 Lymph % (Auto) 13.4 [place] % (Auto) 6.1 Eos % (Auto) 0.0 Baso % (Auto) 0.9 Absolute Neuts (auto) 9.1 H Absolute Lymphs (auto) 1.5 Absolute Monos (auto) 0.7 Absolute Eos (auto) 0.0 Absolute Basos (auto) 0.1 Absolute Nucleated RBC 0.0 Nucleated RBC % 0.0 ESR 3 INR (Anticoag Therapy) APTT Sodium 136 Potassium 3.8 Chloride 104 Carbon Dioxide 23 Anion Gap 9 BUN 17 Creatinine 0.76 Est GFR ( Amer) 127.0 Est GFR (Non-Af Amer) 105.0 BUN/Creatinine Ratio 22.4 H Glucose 140 H Lactic Acid 1.9 Calcium 8.9 Total Bilirubin 0.50 AST 34 ALT 20 Alkaline Phosphatase 111 H Total Creatine Kinase 399 H CK-MB (CK-2) 39.0 H Myoglobin Troponin I 3.98 H* C-Reactive Protein 2.50 B-Natriuretic Peptide Total Protein 6.9 Albumin 4.1 Globulin 2.8 Albumin/Globulin Ratio 1.5 Triglycerides Cholesterol LDL Cholesterol LDL Cholesterol Direct HDL Cholesterol Urine Color Urine Appearance Urine pH Ur Specific [place] Urine Protein Urine Ketones Urine Blood Urine Nitrate Urine Bilirubin Urine Urobilinogen Ur Leukocyte Esterase Urine WBC (Auto) Urine RBC (Auto) Urine Bacteria Urine Glucose Influenza A (Rapid) Influenza B (Rapid) Blood Type Antibody Screen 07/09/19 07/10/19 07/10/19 22:00 00:20 04:50 WBC RBC Hgb Hct MCV MCH MCHC RDW Plt Count MPV Neut % (Auto) Lymph % (Auto) [place] % (Auto) Eos % (Auto) Baso % (Auto) Absolute Neuts (auto) Absolute Lymphs (auto) Absolute Monos (auto) Absolute Eos (auto) Absolute Basos (auto) Absolute Nucleated RBC Nucleated RBC % ESR INR (Anticoag Therapy) APTT Sodium Potassium Chloride Carbon Dioxide Anion Gap BUN Creatinine Est GFR ( Amer) Est GFR (Non-Af Amer) BUN/Creatinine Ratio Glucose Lactic Acid 1.2 1.0 Calcium Total Bilirubin AST ALT Alkaline Phosphatase Total Creatine Kinase CK-MB (CK-2) Myoglobin Troponin I C-Reactive Protein B-Natriuretic Peptide Total Protein Albumin Globulin Albumin/Globulin Ratio Triglycerides Cholesterol LDL Cholesterol LDL Cholesterol Direct HDL Cholesterol Urine Color Straw Urine Appearance Clear Urine pH 6.0 Ur Specific [place] 1.038 H Urine Protein Negative Urine Ketones Negative Urine Blood 3+ A Urine Nitrate Negative Urine Bilirubin Negative Urine Urobilinogen Negative Ur Leukocyte Esterase Negative Urine WBC (Auto) 1+(6-10/hpf) A Urine RBC (Auto) 3+(>10/hpf) A Urine Bacteria Absent Urine Glucose 1+(50 mg/dl) A Influenza A (Rapid) Influenza B (Rapid) Blood Type Antibody Screen 07/10/19 07/10/19 04:50 04:50 WBC 9.5 RBC 4.34 Hgb 13.1 L Hct 39 L MCV 89 MCH 30 MCHC 34 RDW 14 Plt Count 212 MPV 8.6 Neut % (Auto) 68.7 Lymph % (Auto) 22.5 [place] % (Auto) 7.8 Eos % (Auto) 0.6 Baso % (Auto) 0.4 Absolute Neuts (auto) 6.5 Absolute Lymphs (auto) 2.1 Absolute Monos (auto) 0.7 Absolute Eos (auto) 0.1 Absolute Basos (auto) 0.0 Absolute Nucleated RBC 0.0 Nucleated RBC % 0.0 ESR INR (Anticoag Therapy) APTT Sodium 136 Potassium 4.1 Chloride 104 Carbon Dioxide 25 Anion Gap 7 BUN 17 Creatinine 0.83 Est GFR ( Amer) 114.7 Est GFR (Non-Af Amer) 94.8 BUN/Creatinine Ratio 20.5 H Glucose 124 H Lactic Acid Calcium 9.0 Total Bilirubin 0.70 AST 64 H ALT 23 Alkaline Phosphatase 109 H Total Creatine Kinase 679 H CK-MB (CK-2) 74.4 H Myoglobin Troponin I 10.24 H* C-Reactive Protein B-Natriuretic Peptide Total Protein 6.7 Albumin 4.0 Globulin 2.7 Albumin/Globulin Ratio 1.5 Triglycerides 212 Cholesterol 224 LDL Cholesterol 151 LDL Cholesterol Direct HDL Cholesterol 30.6 Urine Color Urine Appearance Urine pH Ur Specific [place] Urine Protein Urine Ketones Urine Blood Urine Nitrate Urine Bilirubin Urine Urobilinogen Ur Leukocyte Esterase Urine WBC (Auto) Urine RBC (Auto) Urine Bacteria Urine Glucose Influenza A (Rapid) Influenza B (Rapid) Blood Type Antibody Screen Nutrition: Heart Healthy Impression: 58M with STEMI s/p catheterization and stent. CAD and STEMI Sepsis of unknown etiology- suspect SIRS response without infection. Cultures are pending. HTN Hyperlipidemia Depression and anxiety Asthma Hypothyroidism DM type 2 GERD Plan: Neuro: Continue home citalopram Home Zolpidem Tylenol prn for pain Delirium precautions. CV: MAP >65 Cardiology primary. Continue ASA 81, Brilinta. Nitroglycerin prn Home amlodipine, lisinopril, metoprolol Continue home ezetimibe Resp: Titrate FiO2 for O2 sat >90% Home albuterol prn, mometasone/formoterol GI: Heart healthy diet. Protonix for GERD Renal: Strict I&Os. ID: Concern for sepsis overnight due to fever and leukocytosis which are both resolved. Waiting for blood cultures. Continue ceftriaxone for now until results are back. Currently no clear source of infection. Heme: Daily CBC Endo: Home Levothyroxine. DM appears to be well controlled, lispro sliding scale AC MSK: Activity as tolerated. Wound: None Status: Guarded Code status: Full Dispo: Requires ICU for hemodynamic monitoring.
[2019-07-10] MEDS ORDERED: Lisinopril TAB* 10 MG PO ONE ×2 (09:54)
--- NOTE | 2019-07-10 09:58 | CATH ---
CC: Dr. Vanessa Almonte; Dr. Roberta Hilton * CARDIAC CATHETERIZATION AND INTERVENTIONAL REPORT: DATE OF PROCEDURE: 07/09/19 FAMILY DOCTOR: Dr. Vanessa Almonte. INDICATION FOR THE PROCEDURE: The patient presents with suggestive findings of acute apical inferior ST-segment elevation myocardial infarction with a known history of prior unsuccessful intervention according to the patient (records pending at this time) to the right coronary artery back in 2008. PROCEDURE: Coronary arteriography; left heart catheterization; primary stenting of the mid left anterior descending artery utilizing a 3.5 x 20 mm long Synergy drug- eluting stent, post dilated with high pressures to 3.65 to 3.7 mm; intravascular ultrasound post stent placement. CONSENT: The patient was interviewed and examined in the emergency room where the risks and benefits were explained. He understood them and wished to proceed. PRE-CARDIAC CATHETERIZATION LABORATORY RESULTS: Pending at the time as the patient was taken emergently to the cardiovascular laboratory. EQUIPMENT UTILIZED: 1. Right radial artery sheath with a 6-British Glidesheath. 2. Diagnostic coronary catheter with a 5-British TIG4 catheter. 3. Diagnostic guidewire was a 260 length Mcmahon curved guidewire. 4. Left heart catheterization catheter was a 5-British PIG short radial catheter. 5. Guide catheter utilized was a 6-British LBU 3.5 curved catheter. 6. The stent placed was a 3.5 x 20 mm long Synergy drug-eluting stent. 7. Post stent deployment balloon catheter utilized was a 3.5 x 12 mm long NC Emerge balloon. 8. Interventional wire utilized was a 190 cm length All Star wire. 9. The intravascular device utilized with a 3.6-British OptiCross 6 catheter. 10. The closure device utilized was a regular length Vasc Band. MEDICATIONS GIVEN DURING THE CASE: The patient had already received 6000 units of heparin in the emergency room. ACT was found to be subtherapeutic. Angiomax bolus and Angiomax drip was given. The patient received a radial artery cocktail including 300 mcg of nitroglycerin, 3 mg of verapamil. 1% Xylocaine was utilized for local anesthesia and intracoronary nitroglycerin 100 mcg was given. DESCRIPTION OF PROCEDURE: The patient was brought to the cardiovascular laboratory. It should be noted that on the way to the cardiovascular laboratory , the patient was feeling much better with significant reduction of his chest discomfort suggesting that reestablishment of blood flow had occurred from the heparin and Brilinta therapy. He was prepped and draped in sterile fashion, and under ultrasound guidance, the right radial artery was cannulated and the sheath was placed. Diagnostic coronary arteriography was performed. Of note, DEVON 3 flow was noted in the left anterior descending artery on the first injection. Left heart catheterization and left ventriculography was performed. Following this, the case was discussed emergently with the interventionalist of [facility], Dr. Trace Landers, who was kind enough to look at the films given the fact that the right coronary artery had reestablishment of flow and had significant lesions, but significant areas of aneurysmal dilatation as well. The LAD was felt to be the culprit with a hazy ulcerated lesion with probable plaque rupture and dissection. He agreed with this, and as such, the intervention to the left anterior descending artery was proceeded with, a primary stenting was performed followed by high pressure balloon inflations utilizing the noncompliant balloon. Following this, intracoronary ultrasound runs were performed to assess the size of the post-stented area and for stent apposition. At the end of the case, the catheter and sheath were removed, and hemostasis was obtained with the Vasc Band. The reverse Barbeau was a B. The total contrast used was 165 cc of Omnipaque dye. The radiation exposure included 19.6 minutes of fluoro time. The air kerma radiation was 3558 milligray. The DAP radiation was 19,504 microgray per meter squared. RESULTS: HEMODYNAMIC DATA: Left heart catheterization revealed central aortic pressure of 124/68 with a mean of 94, left ventricular pressure of 122 over left ventricular end- diastolic pressure of 23. LEFT VENTRICULOGRAPHY: Performed in the PANDEY projection revealed symmetrical contraction of the left ventricular with the exception of hypokinesis seen to the distal anterior and anterior apical region. The overall ejection fraction appeared to be normal at 55%. CORONARY ARTERIOGRAPHY: A. Left coronary artery: 1. Left main - there was very mild narrowing of the ostium of the left main which was short in nature of approximately 15% to 20%. 2. Left anterior descending artery. The left anterior descending artery supplied a high first diagonal branch. There was mild calcium seen in the proximal portion of the LAD. Just after the first septal dust mixer was an ulcerated dissected area. The degree of stenosis appeared to be approximately 85%. DEVON 3 flow was seen in that vessel. The LAD then supplied a mid-to- distal diagonal branch and extended to the apical region with mild luminal irregularities. The high first diagonal branch bifurcated and had moderate disease of 45% to 50% in its mid segment. 3. Circumflex artery - it appeared to be almost a codominant to dominant vessel supplying a high trifurcation marginal branch, small in caliber, followed by a very small second short obtuse marginal branch. There was a mid bifurcating obtuse marginal branch, after which the artery continued in the AV groove supplying multiple low-lying posterior left ventricular branches. There was narrowing in the mid segment of approximately 35%. There was a 45% to 50% narrowing seen in the mid portion of the circumflex. The proximal portion of the circumflex had 30% narrowing as well. B. Right coronary artery - a codominant right coronary artery with a small caliber PDA supplying the mid inferior wall. The right coronary artery had diffuse disease seen throughout its rexblywg-ev-bpr portion with what appeared to be almost aneurysmal dilatations within the tyhkzydf-sy-syj portion. The caliber of the mid and distal vessel clearly were much different compared to the proximal dilated areas. In between the dilated areas, there appeared to be significant narrowings of 70% to 75%. INTERVENTION INTO MID-LEFT ANTERIOR DESCENDING: Successful reduction of 85% dissected mid LAD area with primary stenting with residual stenosis of less than 5%, DEVON 3 flow, and no dissection seen. Intracoronary ultrasound showed good apposition and stent expansion. Of note the LAD is diffusely diseased throughout it's proximal and mid course with non-critical stenosis. OVERALL ASSESSMENT: Significant coronary artery involving the mid left anterior descending as probable culprit vessel with intervention with primary stenting. Residual disease included moderate disease within the circumflex system as well as significant disease and a small caliber right coronary artery, all of which will be managed medically at this point. The patient will be placed on beta- mee therapy, dual antiplatelet therapy. Of note, the patient has had multiple side effects to statin therapy, and originally, his primary spearer recommended the injectable anticholesterol agents, which the patient refused at that time. This needs to be revisited most likely as an outpatient. In the meantime, we will continue Zetia therapy and may start low- dose statin therapy with Pravachol. He does not smoke, so we will not have to address that issue. [id number]/[facility] #: [id number] TRACEY
[2019-07-10 10:23] LABS: Creatine Kinase 647 U/L (10-223)
[2019-07-10 10:28] LABS: Troponin I 8.51 ng/mL (<0.03)
[2019-07-10 10:29] LABS: CKMB ng/mL 63.8 ng/mL (0.6-6.3)
[2019-07-10] MEDS: CMCS:Pravastatin (NF) 20 MG TAB PO SCH (11:55)
[2019-07-10] MEDS: Ezetimibe TAB* 10 MG PO SCH (17:17)
[2019-07-10] MEDS: Metoprolol Succinate XL TAB* 25 MG PO SCH ×2 (20:12)
[2019-07-10] MEDS: cefTRIAXone(*) 1 GM in NS 0.9% 50 ML* 50 ML IVPB SCH (20:43)
[2019-07-11] MEDS: Levothyroxine TAB* 125 MCG TAB PO SCH (04:48)
[2019-07-11 05:38] LABS: ABS Basophils 0.1 10^3/ul (0-0.2); ABS Eosinophils 0.1 10^3/ul (0-0.6); ABS Lymphocytes 1.7 10^3/ul (1.0-4.8); ABS Monocytes 0.7 10^3/ul (0-0.8); ABS Neutrophils 6.1 10^3/ul (1.5-7.7); Eosinophil % 0.6 %; Hematocrit 40 % (42-52); Hemoglobin 13.7 g/dL (14.0-18.0); Lymphocyte % 19.4 %; Mean Corpuscular HGB Conc 34 g/dL (31-36); Mean Corpuscular Hemoglobin 31 pg (27-31); Mean Corpuscular Volume 90 fL (80-94); Mean Platelet Volume 8.2 fL (7.4-10.4); Nucleated Red Blood Cells % 0.2; Platelet Count 222 10^3/uL (150-450); Red Blood Count 4.47 10^6 /uL (4.18-5.48); Red Cell Distribution Width 13 % (10-15); White Blood Count 8.6 10^3/uL (3.5-10.8)
[2019-07-11 05:56] LABS: BUN/Creatinine Ratio 27.7 (8-20); Calcium 9.3 mg/dL (8.6-10.3); EGFR African American 114.7 (>60); EGFR Non-African American 94.8 (>60); Potassium 4.2 mmol/L (3.5-5.0)
[2019-07-11] MEDS: Ticagrelor* 90 MG TAB PO SCH ×2 (08:30→20:11)
[2019-07-11] MEDS: Lisinopril TAB* 10 MG PO SCH (08:30)
[2019-07-11] MEDS: Citalopram TAB* 40 MG PO SCH (08:30)
[2019-07-11] MEDS: Aspirin 81 mg CHEW TAB* 81 MG TAB.CHEW PO SCH (08:31)
[2019-07-11] MEDS: Pantoprazole TAB * 40 MG TAB PO SCH (08:31)
[2019-07-11] MEDS: CMCS:Pravastatin (NF) 20 MG TAB PO SCH (08:31)
[2019-07-11] MEDS: amLODIPine TAB* 5 MG PO SCH (08:31)
[2019-07-11] MEDS: Enoxaparin(*) 40 MG/0.4 ML SYR SUBCUT SCH (08:31)
[2019-07-11] MEDS: Insulin LISPRO* 1 UNITS UNIT SUBCUT SCH ×3 (08:32→17:43)
[2019-07-11] MEDS: Metoprolol Succinate XL TAB* 25 MG PO SCH ×2 (08:32→20:10)
[2019-07-11 08:37] LABS: Albumin 4.1 g/dL (3.2-5.2); Albumin/Globulin Ratio 1.5 (1-3); Globulin 2.8 g/dL (2-4); Indirect Bilirubin 0.5 mg/dL (0.3-1.0); Total Bilirubin 0.6 mg/dL (0.2-1.0); Total Protein 6.9 g/dL (6.4-8.9)
[2019-07-11] MEDS: Mometasone/Formoter 200/5 MDI INH SCH ×2 (08:39→21:26)
[2019-07-11] MEDS ORDERED: Lisinopril TAB* 10 MG PO SCH (09:00)
[2019-07-11 09:07] LABS: TSH (Thyroid Stimulating Horm) 1.52 mcIU/mL (0.34-5.60)
[2019-07-11] MEDS: Polyethylene Glycol 3350* 17 GM PACKET PO SCH (10:01)
[2019-07-11] MEDS: Docusate CAP* 100 MG PO SCH ×2 (10:04→20:10)
--- NOTE | 2019-07-11 11:57 | CONSULT ---
Consult Consult: Critical Care Progress Note Date 07/11/2019 Date of Service: 07/11/19 Critical Care Services: 58 y.o male s/p LAD stent and he is doing well. He denies any chest pain or shortness of breath. He reports some abdominal bloating. Vital Signs: Physical Exam: Gen: Awake alert and oriented HEENT: nc/at perrla Lungs: cta b no wheezes and no rhonchi Cardiac: s1s2 rrr no murmurs Abdomen: soft nt/nd bs+ and no guarding and no rebound tenderness Extremities: no edema. Neuro: He moves all extremities He is alert awake and oriented. Fluid Balance (Past 24 Hours): I= O= Net Intake & Output Impression: Assessment: 1. acute coronoray syndrome s/p LAD stent 2. ACUTE hf C Depressed EF 40-45% 3. HTN 4. COPD not on home oxygen 5. Hypothyroidism 6. CAD hx 7. Gastritis hx 8. SEBAS with noncompliance 9. Fever on 07/09/2019 10 t2DM Plan: Plan -troponins are down trending now off the heparin gtt -dapt and statin will need injectable cholesterol trt outpatient; edward inhibitor -Fever resolved stop abx. CT chest A/P unremarkable UA negative -check LFts -dc rocephin -check TSH -aggressive bowel regimen -nebulizers -Monitor on telemetery for fevers and bowel movements -HbAic is 7.1; he can go home on metformin -Encourage ambulation Critical Care Time:
[2019-07-11] MEDS: Ezetimibe TAB* 10 MG PO SCH (17:43)
[2019-07-11] MEDS ORDERED: Senna TAB 8.6 mg* TAB PO SCH ×2 (21:00)
[2019-07-11] MEDS ORDERED: Senna/Docusate (NF) TAB PO SCH (21:00)
[2019-07-11] MEDS ORDERED: Docusate CAP* 100 MG PO SCH (21:00)
[2019-07-12] MEDS: Levothyroxine TAB* 125 MCG TAB PO SCH (05:22)
[2019-07-12] MEDS: Mometasone/Formoter 200/5 MDI INH SCH (07:56)
[2019-07-12 08:16] VITALS: BP 120/71
[2019-07-12] MEDS: Insulin LISPRO* 1 UNITS UNIT SUBCUT SCH (09:04)
[2019-07-12 09:12] LABS: ABS Eosinophils 0.1 10^3/ul (0-0.6); ABS Lymphocytes 1.9 10^3/ul (1.0-4.8); ABS Monocytes 0.6 10^3/ul (0-0.8); ABS Neutrophils 5.6 10^3/ul (1.5-7.7); Eosinophil % 0.9 %; Hematocrit 42 % (42-52); Hemoglobin 14.4 g/dL (14.0-18.0); Lymphocyte % 23.5 %; Mean Corpuscular HGB Conc 34 g/dL (31-36); Mean Corpuscular Hemoglobin 31 pg (27-31); Mean Corpuscular Volume 90 fL (80-94); Mean Platelet Volume 8.5 fL (7.4-10.4); Nucleated Red Blood Cells % 0.1; Platelet Count 246 10^3/uL (150-450); Red Blood Count 4.69 10^6 /uL (4.18-5.48); Red Cell Distribution Width 13 % (10-15); White Blood Count 8.2 10^3/uL (3.5-10.8)
[2019-07-12] MEDS: Enoxaparin(*) 40 MG/0.4 ML SYR SUBCUT SCH (09:18)
[2019-07-12] MEDS: Pantoprazole TAB * 40 MG TAB PO SCH (09:19)
[2019-07-12] MEDS: Docusate CAP* 100 MG PO SCH (09:19)
[2019-07-12] MEDS: Lisinopril TAB* 10 MG PO SCH (09:20)
[2019-07-12] MEDS: Metoprolol Succinate XL TAB* 25 MG PO SCH (09:20)
[2019-07-12] MEDS: Aspirin 81 mg CHEW TAB* 81 MG TAB.CHEW PO SCH (09:20)
[2019-07-12] MEDS: Citalopram TAB* 40 MG PO SCH (09:21)
[2019-07-12] MEDS: amLODIPine TAB* 5 MG PO SCH (09:21)
[2019-07-12] MEDS: Ticagrelor* 90 MG TAB PO SCH (09:22)
[2019-07-12 09:28] LABS: BUN/Creatinine Ratio 26.1 (8-20); Calcium 9.6 mg/dL (8.6-10.3); EGFR African American 101.9 (>60); EGFR Non-African American 84.2 (>60); Potassium 4.3 mmol/L (3.5-5.0)
[2019-07-12] MEDS: Polyethylene Glycol 3350* 17 GM PACKET PO SCH (10:13)
[2019-07-12] MEDS: CMCS:Pravastatin (NF) 20 MG TAB PO SCH (10:14)
--- NOTE | 2019-07-12 10:41 | DS ---
CC: Dr. Vanessa Almonte; Dr. Maxwell Swift, [facility] * DISCHARGE SUMMARY: DATE OF ADMISSION: 07/09/19 DATE OF DISCHARGE: 07/12/19 FINAL DIAGNOSES: 1. Acute ST-segment elevation apical inferior wall myocardial infarction. 2. Coronary artery disease. 3. Non-insulin requiring diabetes mellitus. 4. Hyperlipidemia. 5. Hypertension. 6. History of gastritis. 7. History of chronic obstructive pulmonary disease. 8. History of benign prostatic hypertrophy. 9. History of hypothyroidism. DISCHARGE MEDICATIONS: Include: 1. Albuterol inhaler p.r.n. 2. Amlodipine 5 mg daily. 3. Citalopram 20 mg daily. 4. Zetia 10 mg daily. 5. Fexofenadine 180 mg daily. 6. Levothyroxine tablet 125 mcg daily. 7. Lisinopril 10 mg a day. 8. Metformin 500 mg a day. 9. Nitroglycerin sublingual p.r.n. 10. Omeprazole 20 mg twice a day. 11. Aspirin 81 mg a day. 12. Metoprolol succinate 25 mg twice a day. 13. Mometasone formoterol inhaler 2 puffs b.i.d. 14. Pravastatin 20 mg a day. 15. Ticagrelor 90 mg a day. HISTORY OF PRESENT ILLNESS/HOSPITAL MOISE: The patient is a pleasant 58-year- old gentleman who came in, in the throes of an acute ST-segment elevation apical inferior wall myocardial infarction. He was taken emergently to the cardiovascular laboratory where it was documented that he had a thrombotic dissected area in his mid LAD with an 80% stenosis. Of note, interestingly back in 2008, he had had intervention attempt for an acute inferior wall myocardial infarction with failed thrombolysis to the right coronary artery at [facility]. Despite thrombectomy and balloon angioplasty, they were not able to open the artery and because of the presence of collaterals, they did not pursue it. At the day of this admission in the labor trainer, he did have a right coronary artery that was patent albeit with multiple aneurysmal dilatated areas and significant stenosis between the aneurysms. Of note, it was a small system supplying the PDA and a trivial posterior left ventricular branch, with several circumflex low lying posterior left ventricular branches paralleling the PDA. Overall, LV function revealed the apical hypokinesis but preservation of the inferior proximal wall. During the hospitalization, his troponin peaked at 10.24 with a total CPK of 679 and MB of 74. An echocardiogram was performed that revealed an ejection fraction of 40% to 45% with severe hypokinesis of the mid apical inferior wall.He was placed on medication to help improve his blood pressure and was up and about and stable with no recurrent symptoms. Medical issues that were managed by the mail superintendent and medical staff revealed his diabetes, for which he was covered with insulin as needed and put back on his metformin 500 mg a day on the day of discharge. Of note, an other issue that the hospitalist and mail superintendent managed were a fever workup where he spiked to 101.3. Blood cultures to date have been negative and he had no further fevers off of initial brief 2-dose antibiotic intravenous therapy. On the day of discharge, he was up and about, stable vital signs 120/71 with pulse 55 to 60 resting, increasing to 70 when up and about. Respirations 16, O2 saturation on room air 97%, afebrile at 97.7. Neck was supple. He does have a left carotid bruit that is known from the past. His lungs were clear. Heart had a regular rate and rhythm. Extremities were without edema. Of note, the right radial pulse was well healed with antegrade flow.Laboratory results at the time of discharge revealed a hemoglobin and hematocrit of 14.4 and 42 with a white count of 8200, platelet count of 246,000. His BUN and creatinine have been stable throughout the hospitalization with 1 pending on the day of discharge, but on the day prior to discharge, sodium was 136, potassium 4.2, chloride 106, bicarb 22, BUN and creatinine 23 and 0.8. He was given acardiac education booklet. He was given a stent card. He was given his Brilinta card, and he has a scheduled followup appointment with Dr. Benjamin Lyle for wound check next week followed by an appointment with Dr. Maxwell Swift, packaging associate, at [facility] as he wished to change his followup to a local packaging associate. I reviewed with him at length the importance of dual antiplatelet therapy.bDr. Swift will also be addressing ongoing antianginal regimen in light of the RCA Current issues that will need to be managed on the outside: 1. The patient will clearly need to be switched over to PCSK9 inhibitors injectable for his cholesterol as his LDL was 150 in the hospital and he had intolerance in the past of atorvastatin as well as Crestor. I did start him on a very low-dose of pravastatin in addition to his Zetia, but clearly he needs the injectable agents. I personally called Dr. Swift's office to get the nurse working on that so that hopefully when Dr. Maxwell Swift sees him in followup, they will be ready to prescribe this to get his cholesterol under control. 2. Another issue is that he has a chronic left carotid bruit, which may need repeat carotid ultrasound to assess for progression. I will leave that up to Dr. Maxwell Swift to consider timing of. 3. He has mild [id number] diabetes mellitus as his hemoglobin A1c in the hospital was 7.1. 4. I gave him a new prescription for nitroglycerin as well. I answered all of his questions to his satisfaction. The patient was discharged home in stable condition. [id number] #: [id number] TRACEY
== END 2019-07-12 11:30 | disposition home or self-care (01) | DRG 174 ==
LOC: ED 14:35 → CHICATH 15:08 → ICU 16:58 → MEDTELE 07-11 11:21
PROVIDERS: ADMIT Internal Medicine Cardiovascular Disease; ATTEND Internal Medicine Cardiovascular Disease
PROC: 4A023N7 Measurement of Cardiac Sampling and Pressure, Left Heart, Percutaneous Approach (ICD-10-PCS; 2019-07-09)
PROC: B2111ZZ Fluoroscopy of Multiple Coronary Arteries using Low Osmolar Contrast (ICD-10-PCS; 2019-07-09)
PROC: B2151ZZ Fluoroscopy of Left Heart using Low Osmolar Contrast (ICD-10-PCS; 2019-07-09)
PROC: 027034Z Dilation of Coronary Artery, One Artery with Drug-eluting Intraluminal Device, Percutaneous Approach (ICD-10-PCS; principal; 2019-07-09 15:45)
DX: I21.19 ST elevation (STEMI) myocardial infarction involving other coronary artery of inferior wall (principal); R65.10 Systemic inflammatory response syndrome (SIRS) of non-infectious origin without acute organ dysfunction; I25.10 Atherosclerotic heart disease of native coronary artery without angina pectoris; E03.9 Hypothyroidism, unspecified; E78.00 Pure hypercholesterolemia, unspecified; K21.9 Gastro-esophageal reflux disease without esophagitis; N40.0 Benign prostatic hyperplasia without lower urinary tract symptoms; M19.90 Unspecified osteoarthritis, unspecified site; G43.909 Migraine, unspecified, not intractable, without status migrainosus; F41.9 Anxiety disorder, unspecified; I10 Essential (primary) hypertension; F32.9 Major depressive disorder, single episode, unspecified; J44.9 Chronic obstructive pulmonary disease, unspecified; E11.9 Type 2 diabetes mellitus without complications; R50.9 Fever, unspecified; G47.33 Obstructive sleep apnea (adult) (pediatric); E78.5 Hyperlipidemia, unspecified; Z88.8 Allergy status to other drugs, medicaments and biological substances; I25.2 Old myocardial infarction; Z87.891 Personal history of nicotine dependence; Z79.82 Long term (current) use of aspirin; Z79.02 Long term (current) use of antithrombotics/antiplatelets; Z79.84 Long term (current) use of oral hypoglycemic drugs; Z79.890 Hormone replacement therapy; Z79.899 Other long term (current) drug therapy
CPT/HCPCS: 36415; 71045; 74176; 80048; 80053; 80061; 80076; 81003; 81015; 82550; 82553; 83036; 83605; 83721; 83874; 83880; 84443; 84484; 85025; 85379; 85610; 85652; 85730; 86140; 86850; 86900; 86901; 87040; 87086; 87641; 93005; 93306; 94640; 99156; 99157; 99285; A9270-GY; C1725; C1769; C1876; C1887; C8929; C9606-LD; J0153; J0583; J0696; J1644; J1650; J2250; J2270; J2405; J3010